=== PATIENT | female | born 2000 | race Two or more races ===

== ENCOUNTER 2019-10-27 00:38 | Emergency (ER) | payer SELFPAY ==
[2019-10-27] MEDS ORDERED: TERBUTALINE SULFATE INJ/PF 1 MG/1 ML SDV SUBCUT ONE (01:04)
[2019-10-27] MEDS ORDERED: BENZONATATE 100 MG CAPSULE PO ONE (01:04)
[2019-10-27] MEDS ORDERED: CETIRIZINE 10 MG TABLET PO ONE (01:05)
[2019-10-27] MEDS ORDERED: MONTELUKAST SODIUM 10 MG TABLET PO ONE (01:05)
--- NOTE | 2019-10-27 01:07 | ER Document Report ---
ED Respiratory Problem - General Chief Complaint: Shortness Of Breath Stated Complaint: DIFFICULTY BREATHING/COUGH Time Seen by Provider: 10/27/19 00:44 Primary Care Provider: [facility] [Provider Group] - Follow up as needed [facility] [Provider Group] - Follow up as needed Notes: Patient is a 19-year-old female who presents to the emergency department with a chief complaint of shortness of breath and difficulty breathing. Patient states that tonight she felt more short of breath. She also has had a sore throat. She was started on amoxicillin from telemedicine. Patient states that tonight she thought it was allergies and she ended up taking Benadryl. States that the Benadryl did not help. She does not take any medications on a normal basis. Denies any medical history that she knows of. - Related Data Allergies/Adverse Reactions: No Known Allergies Allergy (Unverified 10/27/19 00:45) Past Medical History - General Information source: Patient - Social History Smoking Status: Never Smoker Frequency of alcohol use: Rare Drug Abuse: None Family History: Reviewed & Not Pertinent Patient has suicidal ideation: No Patient has homicidal ideation: No Review of Systems - Review of Systems Notes: REVIEW OF SYSTEMS: CONSTITUTIONAL : Denies recent illness. Denies recent unintentional weight loss. Denies fever, chills, or sweats. EENT: See HPI. CARDIOVASCULAR: Denies chest pain. RESPIRATORY: See HPI. GASTROINTESTINAL: Denies nausea, vomiting, and diarrhea. Denies abdominal pain. Denies constipation. GENITOURINARY: Denies difficulty urinating, burning, blood in urine, urgency or frequency. MUSCULOSKELETAL: Denies neck and back pain. Denies joint pain or swelling. SKIN: Denies rash, itchiness, or lesions HEMATOLOGIC : Denies easy bruising or bleeding. LYMPHATIC: Denies swollen, painful, enlarged glands. NEUROLOGICAL: Denies no numbness or tingling denies weakness. Denies headache. Denies altered mental status. Denies alteration in speech. PSYCHIATRIC: Denies stress, anxiety, alteration in sleep patterns, or depression. All other systems reviewed and negative. Physical Exam - Vital signs Vitals: Temp Pulse Resp BP Pulse Ox 98.8 F 84 19 124/81 98 10/27/19 00:43 10/27/19 00:43 10/27/19 00:43 10/27/19 00:43 10/27/19 00:43 - Notes Notes: PHYSICAL EXAMINATION: GENERAL: Appears well, healthy, well-nourished, no acute distress. HEAD: Normocephalic, atraumatic. EYES: PERRL, conjunctiva normal, all extraocular movements intact, sclera nonicteric ENT: Moist mucous membranes. NECK: Supple, no noticeable swelling, redness, rash. Normal range of motion. LUNGS: Expiratory wheezes noted throughout all lung benavides. CARDIOVASCULAR: S1-S2, regular rate, regular rhythm. Radial pulses 2+, normal. ABDOMEN: Normoactive bowel sounds. Soft, nontender, no guarding, no rebound tenderness, and no masses palpated. EXTREMITIES: Normal strength and range of motion, no pitting or edema. No cyanosis. NEUROLOGICAL: Moves all extremities upon command. Strength 5/5 in all extremities. PSYCH: Normal mood, normal affect. SKIN: Warm, dry. No rash, lesions, ulcerations noted. Normal skin turgor. Course - Re-evaluation Re-evalutation: 10/27/19 02:45 Patient's rapid strep test is still positive. Since the patient has been on amoxicillin with little relief of her symptoms, I will switch her over to azithromycin. Patient will follow-up with [facility] or [facility] in regards to this visit. Chest x-ray was normal. Due to the patient just moving here from [facility] and with her presenting symptoms, she will be tested for COVID 19. Follow-up precautions were given. Verbal discharge instructions were given to the patient. They verbalized understanding. They are stable for discharge. - Vital Signs Vital signs: Temp Pulse Resp BP Pulse Ox 98.1 F 94 21 H 132/73 H 98 10/27/19 02:34 10/27/19 02:34 10/27/19 02:34 10/27/19 02:34 10/27/19 02:34 Discharge - Discharge Clinical Impression: Shortness of breath, Sore throat, Strep pharyngitis Condition: Stable Disposition: HOME, SELF-CARE Additional Instructions: You were seen today in the emergency department for shortness of breath and a sore throat. Please stop taking your amoxicillin intake azithromycin as ordered. You are also being sent home with a prescription for an albuterol inhaler. You can take 1 puff every 4-6 hours as needed. Take the allergy medications as ordered. You were tested for COVID 19. Please self quarantine for 2 weeks. You will be called with your results. Wash your hands, do not touch your face, cover any cough with your elbow. Follow up with one of the clinics below after quarantine. Prescriptions: Benzonatate [Tessalon Perles 100 mg Capsule] 100 mg PO Q8HP PRN #40 capsule PRN Reason: Cetirizine HCl [All Day Allergy] 10 mg PO DAILY #30 tablet Fluticasone Propionate [Flonase Nasal Hamilton 50 Mcg/Hamilton 16 gm] 2 sprays NASL DAILY #1 inhaler Albuterol Sulfate [Proair HFA Inhalation Aerosol 8.5 gm MDI] 2 puff IH Q4H PRN #1 mdi PRN Reason: Azithromycin [Zithromax 250 mg Tablet] 250 mg PO DAILY #4 tablet Referrals: [facility] [Provider Group] - Follow up as needed [facility] [Provider Group] - Follow up as needed
--- NOTE | 2019-10-27 02:13 | RADIOLOGY REPORT (SQ) ---
EXAM DESCRIPTION: XR CHEST 1 VIEW COMPLETED DATE/TME: 10/27/2019 01:06 CLINICAL HISTORY: 19 years, Female, shortness of breath COMPARISON: None. NUMBER OF VIEWS: One TECHNIQUE: AP view of the chest LIMITATIONS: None. FINDINGS: The lungs are clear. The heart is normal in size. There is no pneumothorax or pleural effusion. There is no acute fracture. IMPRESSION: No acute cardiopulmonary abnormality. copyright 2010 [employer]- All Rights Reserved
[2019-10-27 02:35] VITALS: BP 132/73
[2019-10-27] MEDS ORDERED: AZITHROMYCIN 250 MG TABLET PO ONE (02:52)
== END 2019-10-27 03:05 | disposition home or self-care (01) ==
LOC: ER 00:38
DX: R06.02 Shortness of breath (principal); J02.0 Streptococcal pharyngitis; R06.2 Wheezing; Z20.828 Contact with and (suspected) exposure to other viral communicable diseases
CPT/HCPCS: 99285; 96372; 87880; 87635; 71045; J3105